=== PATIENT | female | born 1965 | race Caucasian/White ===

== ENCOUNTER → 2016-09-25 | Outpatient (CLI) | payer OTHER ==
[~2016-09-25] MED LIST: ATORVASTATIN CA40 MG PO; CLEOCIN300 MG PO; CONZIP300 MG PO; FLEXERIL10 MG PO; HUMALOG100 UNIT/1 SQ; HYDROCHLOROTHIA25 MG PO; HYDROCODON-ACE1 EAC7 PO; LANTUS 10100 UNITS/ SC; LANTUS 3 M100 UNITS1 SC; LEXAPRO10 MG PO; LISINOPRIL10 MG PO; LO-DOSE ASPIRIN81 M2 PO; LOSARTAN POTAS100 MG PO; LYRICA150 MG PO; LYRICA200 MG PO; LYRICA300 MG PO; OMEGA 3 500 SO1 EACH PO; PLAVIX75 MG PO; PROAIR HFA8.5 GM IH; RANITIDINE HCL75 MG PO; ULTRAM50 MG PO
== END | disposition home or self-care (01) ==
LOC: PICC 14:00
DX: M86.9 Osteomyelitis, unspecified (principal); Z88.0 Allergy status to penicillin; Z88.1 Allergy status to other antibiotic agents
CPT/HCPCS: 76937; C1894

== ENCOUNTER → 2016-09-25 | Outpatient (CLI) | payer OTHER ==
[~2016-09-25] VITALS: Ht 157.5 cm; Wt 81.8 kg
[2016-09-25 12:08] VITALS: BP 151/67
[2016-09-25 12:24] LABS: HEMATOCRIT 38.5 % (36.0-46.0); MCH 29.2 PG (29.0-34.0); MCHC 32.5 G/DL (30.0-36.0); MEAN PLAT.VOLUME 10.7 uM^3 (9.5-12.4); PLATELET COUNT 267 K/uL (156-360); RBC DIS.WIDTH-CV 14.2 % (11.8-14.6); RBC DIS.WIDTH-SD 46.4 % (39-53); RED BLOOD COUNT 4.28 M/uL (3.80-5.20); WHITE BLOOD COUNT 10.9 K/uL (4.1-10.2)
[2016-09-25 12:45] LABS: ANION GAP 8 MEQ/L (2-14); CHLORIDE 106 MEQ/L (99-109); GFR ESTIMATE (CALCULATED) > 59 mL/min/; GLUCOSE 54 mg/dL (70-99); POTASSIUM 3.9 MEQ/L (3.7-5.4); SAMPLE HEMOLYSIS CHECK 0; SAMPLE ICTERIC CHECK 0; SAMPLE LIPEMIA CHECK 0; SODIUM 141 MEQ/L (136-147); UREA NITROGEN (BUN) 16 mg/dL (9-23)
[2016-09-25 13:07] LABS: ERTH.SED.RATE 68 MM/HR (0-30)
== END | disposition home or self-care (01) ==
LOC: IVINF 11:30
PROVIDERS: Internal Medicine Infectious Disease
DX: M86.9 Osteomyelitis, unspecified (principal); Z88.1 Allergy status to other antibiotic agents
CPT/HCPCS: 80048; 85027; 85651; 86140; 96365; J0690

== ENCOUNTER 2016-12-10 21:06 | Emergency (ER) | payer OTHER ==
[~2016-12-10] VITALS: Ht 157.5 cm; Wt 87.3 kg
[2016-12-10 23:14] LABS: BASOPHIL COUNT 0.1 K/uL (0-0.1); EOSINOPHIL (%) 2.7 % (0-5); EOSINOPHIL COUNT 0.4 K/uL (0-0.3); HEMATOCRIT 31.6 % (36.0-46.0); IMMATURE GRANULOCYTE (%) 0.4 % (0.0-0.7); IMMATURE GRANULOCYTE COUNT 0.1 K/uL; INSTRUMENT ABS NEUTROPHIL CT 9.3 K/uL; LYMPHOCYTE COUNT 2.8 K/uL (1.0-2.8); MCH 27.7 PG (29.0-34.0); MCHC 31.3 G/DL (30.0-36.0); MCV 88.5 FL (83-99); MEAN PLAT.VOLUME 10.6 uM^3 (9.5-12.4); MONOCYTE (%) 7.5 % (3-12); NEUTROPHIL (%) 68.5 % (45-76); NEUTROPHIL COUNT 9.3 K/uL (1.8-6.4); PLATELET COUNT 312 K/uL (156-360); RBC DIS.WIDTH-CV 13.5 % (11.8-14.6); RBC DIS.WIDTH-SD 43.7 % (39-53); RED BLOOD COUNT 3.57 M/uL (3.80-5.20); WHITE BLOOD COUNT 13.5 K/uL (4.1-10.2)
[2016-12-10 23:25] LABS: CHLORIDE 102 mEq/L (99-109); POTASSIUM 4.3 mEq/L (3.7-5.4); SODIUM 140 mEq/L (136-147)
[2016-12-10 23:27] LABS: GLUCOSE 189 mg/dL (70-99)
[2016-12-10 23:28] LABS: ANION GAP 11 MEQ/L (2-14)
[2016-12-10 23:31] LABS: GFR ESTIMATE (CALCULATED) 36 mL/min/
[2016-12-10 23:32] LABS: UREA NITROGEN (BUN) 19 mg/dL (9-23)
[2016-12-10] MEDS ORDERED: ZYVOX600 MG PO (23:47)
[2016-12-11 00:11] LABS: ERTH.SED.RATE 75 MM/HR (0-30)
[2016-12-11 00:31] VITALS: BP 119/76
[2016-12-11 04:39] LABS: C-REACTIVE PROTEIN 197.3 MG/L (0-10); SAMPLE HEMOLYSIS CHECK 0; SAMPLE ICTERIC CHECK 0; SAMPLE LIPEMIA CHECK 0
== END 2016-12-11 00:38 ==
LOC: EME 21:06
PROVIDERS: Emergency Medicine
DX: L03.115 Cellulitis of right lower limb (principal); E11.65 Type 2 diabetes mellitus with hyperglycemia; Z79.4 Long term (current) use of insulin; Z79.82 Long term (current) use of aspirin; E78.5 Hyperlipidemia, unspecified; Z88.1 Allergy status to other antibiotic agents; Z88.0 Allergy status to penicillin; I10 Essential (primary) hypertension; Z86.73 Personal history of transient ischemic attack (TIA), and cerebral infarction without residual deficits; Z72.0 Tobacco use; Z89.512 Acquired absence of left leg below knee
CPT/HCPCS: 73610; 73630; 80048; 83605; 85025 91; 85651; 86140; 87040; 99281; 99285

== ENCOUNTER 2017-01-05 11:28 | Emergency (ER) | payer OTHER ==
[~2017-01-05] VITALS: Ht 157.5 cm; Wt 85.5 kg
[~2017-01-05 11:28] MED LIST changes: +ZYVOX600 MG PO
[2017-01-05 12:35] LABS: ADD MIUA? YES; BILIRUBIN NEGATIVE; BLOOD NEGATIVE; COLOR YELLOW ((YELLOW)); GLUCOSE (STRIP) NEGATIVE; KETONES NEGATIVE; LEUKOCYTES MODERATE; NITRITE NEGATIVE; PROTEIN (STRIP) 30; SPECIFIC GRAVITY 1.011 (1.000-1.030); UROBILINOGEN 0.2 MG/DL (0.2-1.0)
[2017-01-05 12:52] LABS: EPITHELIAL CELLS 1+ /HPF; MUCUS NONE SEEN /LPF; RED BLOOD CELLS NONE SEEN /HPF (0-5)
[2017-01-05 12:53] LABS: BACTERIA 3+ /HPF
[2017-01-05 13:13] LABS: HEMATOCRIT 25.8 % (36.0-46.0); MCH 25.6 PG (29.0-34.0); MCV 82.7 FL (83-99); PLATELET COUNT 459 K/uL (156-360); RBC DIS.WIDTH-CV 15.8 % (11.8-14.6); RBC DIS.WIDTH-SD 47.2 % (39-53); RED BLOOD COUNT 3.12 M/uL (3.80-5.20); WHITE BLOOD COUNT 12.9 K/uL (4.1-10.2)
[2017-01-05 13:17] LABS: CHLORIDE 103 mEq/L (99-109); POTASSIUM 4.1 mEq/L (3.7-5.4); SODIUM 138 mEq/L (136-147)
[2017-01-05 13:19] LABS: GLUCOSE 83 mg/dL (70-99)
[2017-01-05 13:20] LABS: ANION GAP 12 MEQ/L (2-14)
[2017-01-05 13:23] LABS: GFR ESTIMATE (CALCULATED) 50 mL/min/
[2017-01-05 13:24] LABS: UREA NITROGEN (BUN) 23 mg/dL (9-23)
[2017-01-05] MEDS ORDERED: LEVAQUIN750 MG PO (13:37)
[2017-01-05 14:07] VITALS: BP 138/74
[2017-01-05] MEDS ORDERED: COLESTID1 GM PO (17:03)
[2017-01-05] MEDS ORDERED: CYMBALTA60 MG PO (17:03)
[2017-01-05] MEDS ORDERED: EUCERIN CREME57 GM TP (17:05)
[2017-01-05] MEDS ORDERED: GLUCAGEN1 MG IM (17:06)
[2017-01-05] MEDS ORDERED: GLUCOSE GEL15 GM PO (17:06)
[2017-01-05] MEDS ORDERED: FERROUS SULFAT325 MG PO (17:06)
[2017-01-05] MEDS ORDERED: KETOCONAZOLE60 GM TP (17:07)
[2017-01-05] MEDS ORDERED: LORTAB 5-325 M1 EACH PO (17:07)
[2017-01-05] MEDS ORDERED: PROCARDIA XL90 MG PO (17:09)
[2017-01-05] MEDS ORDERED: LANTUS 10100 UNITS/ SC (17:09)
[2017-01-05] MEDS ORDERED: RANITIDINE HCL150 M1 PO (17:10)
[2017-01-05] MEDS ORDERED: VITAMIN D5000 UNI1 PO (17:10)
[2017-01-05] MEDS ORDERED: SILVADENE20 GM TP (17:10)
== END 2017-01-05 14:21 ==
LOC: EME 11:28
PROVIDERS: Emergency Medicine
DX: R33.9 Retention of urine, unspecified (principal); N39.0 Urinary tract infection, site not specified; Z86.73 Personal history of transient ischemic attack (TIA), and cerebral infarction without residual deficits; Z89.612 Acquired absence of left leg above knee; E11.9 Type 2 diabetes mellitus without complications; E78.5 Hyperlipidemia, unspecified; I10 Essential (primary) hypertension; Z79.4 Long term (current) use of insulin; Z79.02 Long term (current) use of antithrombotics/antiplatelets; Z88.0 Allergy status to penicillin; F17.200 Nicotine dependence, unspecified, uncomplicated
CPT/HCPCS: 80048; 81003; 85027; 87086; 99281; 99285

== ENCOUNTER 2017-01-13 11:33 | Emergency (ER) | payer OTHER ==
[~2017-01-13] VITALS: Ht 157.5 cm; Wt 81.9 kg
[~2017-01-13 11:33] MED LIST changes: +COLESTID1 GM PO; +CYMBALTA60 MG PO; +EUCERIN CREME57 GM TP; +FERROUS SULFAT325 MG PO; +GLUCAGEN1 MG IM; +GLUCOSE GEL15 GM PO; +KETOCONAZOLE60 GM TP; +LEVAQUIN750 MG PO; +LORTAB 5-325 M1 EACH PO; +PROCARDIA XL90 MG PO; +RANITIDINE HCL150 M1 PO; +SILVADENE20 GM TP; +VITAMIN D5000 UNI1 PO
[2017-01-13 13:08] LABS: HEMATOCRIT 38.6 % (36.0-46.0); MCH 25.9 PG (29.0-34.0); MCHC 31.3 G/DL (30.0-36.0); MCV 82.5 FL (83-99); RBC DIS.WIDTH-CV 14.6 % (11.8-14.6); RBC DIS.WIDTH-SD 43.9 % (39-53); RED BLOOD COUNT 4.68 M/uL (3.80-5.20); WHITE BLOOD COUNT 10.5 K/uL (4.1-10.2)
[2017-01-13 13:16] LABS: CHLORIDE 102 mEq/L (99-109); POTASSIUM 4.4 mEq/L (3.7-5.4); SODIUM 140 mEq/L (136-147)
[2017-01-13 13:18] LABS: EOSINOPHIL (%) 1.1 % (0-5); EOSINOPHIL COUNT 0.1 K/uL (0-0.3); IMMATURE GRANULOCYTE (%) 0.5 % (0.0-0.7); IMMATURE GRANULOCYTE COUNT 0.1 K/uL; INSTRUMENT ABS NEUTROPHIL CT 7.5 K/uL; LYMPHOCYTE COUNT 2.2 K/uL (1.0-2.8); MONOCYTE (%) 6.2 % (3-12); MONOCYTE COUNT 0.7 K/uL (0-0.8); NEUTROPHIL (%) 70.6 % (45-76); NEUTROPHIL COUNT 7.5 K/uL (1.8-6.4)
[2017-01-13 13:20] LABS: ANION GAP 11 MEQ/L (2-14); TOTAL BILIRUBIN 0.4 mg/dL (0.0-1.0)
[2017-01-13 13:22] LABS: ALKALINE PHOSPHATASE 92 IU/L (3-129); GFR ESTIMATE (CALCULATED) 50 mL/min/; GLUCOSE 247 mg/dL (70-99)
[2017-01-13 13:23] LABS: UREA NITROGEN (BUN) 23 mg/dL (9-23)
[2017-01-13 13:37] LABS: MEAN PLAT.VOLUME 10.2 uM^3 (9.5-12.4); PLAT.SUFFICIENCY ADEQUATE; PLATELET COUNT 305 K/uL (156-360)
[2017-01-13] MEDS ORDERED: XARELTO15 MG PO (15:56)
[2017-01-13 18:20] VITALS: BP 184/86
== END 2017-01-13 18:32 ==
LOC: EME 11:33
PROVIDERS: Emergency Medicine
DX: I82.622 Acute embolism and thrombosis of deep veins of left upper extremity (principal); J02.9 Acute pharyngitis, unspecified; E11.65 Type 2 diabetes mellitus with hyperglycemia; E78.5 Hyperlipidemia, unspecified; I10 Essential (primary) hypertension; Z86.73 Personal history of transient ischemic attack (TIA), and cerebral infarction without residual deficits; Z79.4 Long term (current) use of insulin; Z89.512 Acquired absence of left leg below knee; Z88.0 Allergy status to penicillin; Z87.891 Personal history of nicotine dependence
CPT/HCPCS: 80053; 81003; 85025; 93971; 99281; 99285; J7030

== ENCOUNTER 2017-01-23 09:09 | Inpatient (IN) | payer OTHER ==
[~2017-01-23] VITALS: Ht 157.5 cm; Wt 83.0 kg
[2017-01-23] VITALS (27 sets, daily range): BP systolic 0–157; BP diastolic 0–85
[~2017-01-23 09:09] MED LIST changes: +XARELTO15 MG PO
[2017-01-23 09:49] LABS: EOSINOPHIL (%) 0.3 % (0-5); HEMATOCRIT 22.4 % (36.0-46.0); IMMATURE GRANULOCYTE (%) 0.6 % (0.0-0.7); IMMATURE GRANULOCYTE COUNT 0.1 K/uL; INSTRUMENT ABS NEUTROPHIL CT 6.7 K/uL; LYMPHOCYTE COUNT 2.7 K/uL (1.0-2.8); MCH 25.7 PG (29.0-34.0); MCHC 29.9 G/DL (30.0-36.0); MCV 85.8 FL (83-99); MEAN PLAT.VOLUME 11.1 uM^3 (9.5-12.4); MONOCYTE (%) 3.6 % (3-12); MONOCYTE COUNT 0.4 K/uL (0-0.8); NEUTROPHIL (%) 68.3 % (45-76); NEUTROPHIL COUNT 6.7 K/uL (1.8-6.4); PLATELET COUNT 273 K/uL (156-360); RBC DIS.WIDTH-CV 15.9 % (11.8-14.6); RBC DIS.WIDTH-SD 49.8 % (39-53)
[2017-01-23 09:50] LABS: RED BLOOD COUNT 2.61 M/uL (3.80-5.20); WHITE BLOOD COUNT 9.9 K/uL (4.1-10.2)
[2017-01-23 09:57] LABS: PROTHROMBIN TIME 30.7 (9.2-11.2); PTT 57.3 (25-32)
[2017-01-23 09:58] LABS: INTER. NORMALIZED RATIO 2.9
[2017-01-23 10:00] LABS: CHLORIDE 109 mEq/L (99-109); POTASSIUM 5.4 mEq/L (3.7-5.4); SODIUM 135 mEq/L (136-147)
[2017-01-23 10:03] LABS: ANION GAP 12 MEQ/L (2-14)
[2017-01-23 10:04] LABS: TOTAL BILIRUBIN 0.2 mg/dL (0.0-1.0)
[2017-01-23 10:05] LABS: ALKALINE PHOSPHATASE 58 IU/L (3-129)
[2017-01-23 10:06] LABS: GFR ESTIMATE (CALCULATED) 39 mL/min/
[2017-01-23 10:07] LABS: UREA NITROGEN (BUN) 69 mg/dL (9-23)
[2017-01-23 10:10] LABS: TROP-I INTERPRETATION NEGATIVE; TROPONIN-I 0.01 ng/mL (0.0-0.30)
[2017-01-23 10:15] LABS: GLUCOSE 171 mg/dL (70-99)
[2017-01-23 10:29] LABS: BASE EXCESS -5.7 mEq/L (-3 to +3); BICARBONATE 19.4 mEq/L (22-26); COMMENTS - BLOOD GASES C+; DEVICE NRB MASK; O2 FLOW 15 L/MIN; PCO2 36 mm Hg (35-45); PO2 121 mm Hg (80-100); SITE RB; TOTAL RESP RATE 12 resp/min; pH 7.34 (7.35-7.45)
[2017-01-23 10:32] LABS: CARBOXY HGB 2.3 % (0-5)
[2017-01-23] MEDS ORDERED: ASPIR-LOW81 MG PO (12:45)
[2017-01-23] MEDS ORDERED: ARTIFICIAL TEAR1510 BOTH EYES (12:45)
[2017-01-23] MEDS ORDERED: ATORVASTATIN CA40 MG PO (12:46)
[2017-01-23] MEDS ORDERED: CLOPIDOGREL75 MG PO (12:46)
[2017-01-23] MEDS ORDERED: WARFARIN SODIUM6 MG PO (12:47)
[2017-01-23] MEDS ORDERED: WARFARIN SODIUM5 MG PO (12:47)
[2017-01-23] MEDS ORDERED: TAMSULOSIN HCL0.4 MG PO (12:48)
[2017-01-23] MEDS ORDERED: LISINOPRIL20 MG PO (12:49)
[2017-01-23] MEDS ORDERED: LORATADINE10 M2 PO (12:49)
[2017-01-23] MEDS ORDERED: NICOTINE PATCH1 EAC1 TD (12:50)
[2017-01-23] MEDS ORDERED: NORTRIPTYLINE H25 MG PO (12:50)
[2017-01-23] MEDS ORDERED: ERGOCALCIF50000 UNIT PO (12:51)
[2017-01-23] MEDS ORDERED: LOVAZA1 GM PO (12:51)
[2017-01-23] MEDS ORDERED: WARFARIN SODIU2.5 MG PO (12:52)
[2017-01-23] MEDS ORDERED: ZINC SULFATE220 M1 PO (12:53)
[2017-01-23] MEDS ORDERED: VITAMIN C500 M1 PO (12:53)
[2017-01-23] MEDS ORDERED: CILOSTAZOL100 MG PO (12:54)
[2017-01-23] MEDS ORDERED: CRANBERRY 4001 EAC1 PO (12:54)
[2017-01-23] MEDS ORDERED: ENOXAPARIN40 MG/0.4 SC (12:55)
[2017-01-23] MEDS ORDERED: MUCINEX DM ER1 EACH PO (12:56)
[2017-01-23] MEDS ORDERED: PROBIOTIC1 EAC1 PO (12:57)
[2017-01-23] MEDS ORDERED: OXYCONTIN10 MG PO (12:57)
[2017-01-23] MEDS ORDERED: BETHANECHOL CHL50 MG PO (12:58)
[2017-01-23] MEDS ORDERED: LYRICA200 MG PO (12:58)
[2017-01-23] MEDS ORDERED: GABAPENTIN300 MG PO (12:59)
[2017-01-23] MEDS ORDERED: NOVOLOG PE100 UNITS/ SC (13:01)
[2017-01-23] MEDS ORDERED: SSD25GM TP (13:02)
[2017-01-23] MEDS ORDERED: LOMOTIL TABLET1 EACH PO (13:02)
[2017-01-23] MEDS ORDERED: 8 HOUR PAIN RE650 M1 PO (13:03)
[2017-01-23 13:30] LABS: POINT-OF-CARE METER ID UU14100415
[2017-01-23] MEDS ORDERED: LANTUS 3 M100 UNITS1 SC (14:04)
[2017-01-23] MEDS ORDERED: ARTIFICIAL TEAR15 M1 BOTH EYES (14:06)
[2017-01-23 21:49] LABS: METH RESISTANT S AUREUS PCR POSITIVE (NEGATIVE)
[2017-01-23 21:53] LABS: HEMATOCRIT 31.9 % (36.0-46.0); MCH 26.6 PG (29.0-34.0); MCHC 32.9 G/DL (30.0-36.0); PLATELET COUNT 272 K/uL (156-360); RBC DIS.WIDTH-CV 15.3 % (11.8-14.6); RBC DIS.WIDTH-SD 44.5 % (39-53); WHITE BLOOD COUNT 10.4 K/uL (4.1-10.2)
[2017-01-23 21:54] LABS: MCV 80.8 FL (83-99); RED BLOOD COUNT 3.95 M/uL (3.80-5.20)
[2017-01-23 21:57] LABS: PROBE CHECK PASS
[2017-01-23 22:06] LABS: PTT 37.8 (25-32)
[2017-01-23 22:14] LABS: TROP-I INTERPRETATION NEGATIVE; TROPONIN-I 0.05 ng/mL (0.0-0.30)
[2017-01-23 22:43] LABS: INTER. NORMALIZED RATIO 1.2; PROTHROMBIN TIME 12.4 (9.2-11.2)
[2017-01-24] VITALS (20 sets, daily range): BP systolic 126–184; BP diastolic 64–106
[2017-01-24 07:23] LABS: Estimated Average Glucose 146 mg/dL (70-123); HEMOGLOBIN A1c (GLYCOHEMOGLOB) 6.7 % HGB (Below 5.7)
[2017-01-24 09:20] LABS: HEMATOCRIT 34.6 % (36.0-46.0); MCH 26.5 PG (29.0-34.0); MCHC 32.7 G/DL (30.0-36.0); MEAN PLAT.VOLUME 11.4 uM^3 (9.5-12.4); PLATELET COUNT 282 K/uL (156-360); RBC DIS.WIDTH-CV 15.6 % (11.8-14.6); RBC DIS.WIDTH-SD 45.2 % (39-53); RED BLOOD COUNT 4.27 M/uL (3.80-5.20); WHITE BLOOD COUNT 10.5 K/uL (4.1-10.2)
[2017-01-24 09:27] LABS: CHLORIDE 115 mEq/L (99-109); POTASSIUM 4.9 mEq/L (3.7-5.4)
[2017-01-24 09:29] LABS: INTER. NORMALIZED RATIO 1.2; PROTHROMBIN TIME 11.8 (9.2-11.2); PTT 35.8 (25-32)
[2017-01-24 09:30] LABS: ANION GAP 11 MEQ/L (2-14)
[2017-01-24 09:33] LABS: GFR ESTIMATE (CALCULATED) 46 mL/min/
[2017-01-24 09:34] LABS: UREA NITROGEN (BUN) 65 mg/dL (9-23)
[2017-01-24 09:35] LABS: GLUCOSE 316 mg/dL (70-99); SODIUM 145 mEq/L (136-147)
[2017-01-24 10:04] LABS: POINT-OF-CARE METER ID UU13113731
[2017-01-24 11:14] LABS: POINT-OF-CARE METER ID UU13113694
[2017-01-24 13:19] LABS: HEMATOCRIT 33.2 % (36.0-46.0); MCH 26.7 PG (29.0-34.0); MCHC 32.8 G/DL (30.0-36.0); MCV 81.2 FL (83-99); MEAN PLAT.VOLUME 11.2 uM^3 (9.5-12.4); PLATELET COUNT 276 K/uL (156-360); RBC DIS.WIDTH-CV 15.8 % (11.8-14.6); RBC DIS.WIDTH-SD 46.1 % (39-53); RED BLOOD COUNT 4.09 M/uL (3.80-5.20); WHITE BLOOD COUNT 12.7 K/uL (4.1-10.2)
[2017-01-24 14:28] LABS: ADD MIUA? YES; BILIRUBIN NEGATIVE; BLOOD MODERATE; COLOR STRAW ((YELLOW)); GLUCOSE (STRIP) >=500; KETONES 5; LEUKOCYTES NEGATIVE; NITRITE NEGATIVE; PROTEIN (STRIP) 100; SPECIFIC GRAVITY 1.008 (1.000-1.030); UROBILINOGEN 0.2 MG/DL (0.2-1.0)
[2017-01-24 14:36] LABS: BASE EXCESS 1.3 mEq/L (-3 to +3); CARBOXY HGB 2.4 % (0-5); METHEMOGLOBIN 1.3 % (0-1.5); PCO2 34 mm Hg (35-45)
[2017-01-24 14:37] LABS: BICARBONATE 24.7 mEq/L (22-26); COMMENTS - BLOOD GASES A+C+; DEVICE NC; O2 FLOW 2 L/MIN; PO2 66 mm Hg (80-100); SITE LR; TOTAL RESP RATE 14 resp/min; pH 7.47 (7.35-7.45)
[2017-01-24 14:45] LABS: EOSINOPHIL (%) 0.2 % (0-5); IMMATURE GRANULOCYTE (%) 1.1 % (0.0-0.7); IMMATURE GRANULOCYTE COUNT 0.1 K/uL; INSTRUMENT ABS NEUTROPHIL CT 10.4 K/uL; LYMPHOCYTE COUNT 1.4 K/uL (1.0-2.8); MONOCYTE (%) 5.3 % (3-12); MONOCYTE COUNT 0.7 K/uL (0-0.8); NEUTROPHIL (%) 82.2 % (45-76); NEUTROPHIL COUNT 10.4 K/uL (1.8-6.4)
[2017-01-24 14:50] LABS: BACTERIA RARE /HPF; EPITHELIAL CELLS NONE SEEN /HPF; HYALINE CASTS 0-5 /LPF; MUCUS TRACE /LPF; RED BLOOD CELLS 15-20 /HPF (0-5); UCUL ADDED? NO; WHITE BLOOD CELLS 0-5 /HPF (0-5)
[2017-01-24 15:07] LABS: MAGNESIUM 2.1 mg/dL (1.3-2.7)
[2017-01-24 19:18] LABS: HEMATOCRIT 32.9 % (36.0-46.0); MCH 26.8 PG (29.0-34.0); MCHC 32.8 G/DL (30.0-36.0); MCV 81.6 FL (83-99); MEAN PLAT.VOLUME 10.6 uM^3 (9.5-12.4); PLATELET COUNT 246 K/uL (156-360); RBC DIS.WIDTH-CV 15.8 % (11.8-14.6); RBC DIS.WIDTH-SD 46.4 % (39-53); RED BLOOD COUNT 4.03 M/uL (3.80-5.20); WHITE BLOOD COUNT 12.9 K/uL (4.1-10.2)
[2017-01-24 20:05] LABS: EOSINOPHIL (%) 0.2 % (0-5); IMMATURE GRANULOCYTE (%) 0.9 % (0.0-0.7); IMMATURE GRANULOCYTE COUNT 0.1 K/uL; INSTRUMENT ABS NEUTROPHIL CT 10.5 K/uL; LYMPHOCYTE COUNT 1.4 K/uL (1.0-2.8); MONOCYTE COUNT 0.8 K/uL (0-0.8); NEUTROPHIL (%) 81.7 % (45-76); NEUTROPHIL COUNT 10.5 K/uL (1.8-6.4)
[2017-01-25] VITALS (23 sets, daily range): BP systolic 130–204; BP diastolic 60–108
[2017-01-25 01:05] LABS: HEMATOCRIT 35.6 % (36.0-46.0); MCH 26.7 PG (29.0-34.0); MCHC 32.6 G/DL (30.0-36.0); MCV 81.8 FL (83-99); MEAN PLAT.VOLUME 10.4 uM^3 (9.5-12.4); PLATELET COUNT 258 K/uL (156-360); RBC DIS.WIDTH-SD 47.8 % (39-53); RED BLOOD COUNT 4.35 M/uL (3.80-5.20); WHITE BLOOD COUNT 14.8 K/uL (4.1-10.2)
[2017-01-25 02:12] LABS: EOSINOPHIL (%) 0.3 % (0-5); HEMATOLOGY COMMENT 1 SMEAR COMPATIBLE; IMMATURE GRANULOCYTE (%) 1.1 % (0.0-0.7); IMMATURE GRANULOCYTE COUNT 0.2 K/uL; INSTRUMENT ABS NEUTROPHIL CT 11.6 K/uL; LYMPHOCYTE COUNT 2.2 K/uL (1.0-2.8); MONOCYTE (%) 5.6 % (3-12); MONOCYTE COUNT 0.8 K/uL (0-0.8); NEUTROPHIL COUNT 11.6 K/uL (1.8-6.4)
[2017-01-25 07:44] LABS: HEMATOCRIT 35.3 % (36.0-46.0); MCH 26.7 PG (29.0-34.0); MCHC 31.7 G/DL (30.0-36.0); MEAN PLAT.VOLUME 11.1 uM^3 (9.5-12.4); PLATELET COUNT 266 K/uL (156-360); RBC DIS.WIDTH-SD 48.1 % (39-53); WHITE BLOOD COUNT 14.4 K/uL (4.1-10.2)
[2017-01-25 08:11] LABS: ANION GAP 15 MEQ/L (2-14); CHLORIDE 112 MEQ/L (99-109); GFR ESTIMATE (CALCULATED) > 59 mL/min/; GLUCOSE 304 mg/dL (70-99); SAMPLE HEMOLYSIS CHECK 0; SAMPLE ICTERIC CHECK 0; SAMPLE LIPEMIA CHECK 0; SODIUM 149 MEQ/L (136-147); UREA NITROGEN (BUN) 36 mg/dL (9-23)
[2017-01-25 08:16] LABS: ANISOCYTOSIS 1+; BAND NEUTROPHILS 18.4 % (0-8.0); BASOPHILS 0.9 %; EOSINOPHIL ABS CT 0; INSTRUMENT ABS NEUTROPHIL CT 12.4 K/uL; LYMPHOCYTES 8.8 % (15.0-45.0); MACROCYTES 1+; PLAT.SUFFICIENCY ADEQUATE; POLYCHROMASIA 1+; SEG.NEUTROPHILS 71.9 % (46.0-76.0)
[2017-01-25 09:01] LABS: INTER. NORMALIZED RATIO 1.2; PROTHROMBIN TIME 12.3 (9.2-11.2); PTT 36.5 (25-32)
[2017-01-25 09:49] LABS: MAGNESIUM 1.8 mg/dl (1.3-2.7)
[2017-01-25 12:38] LABS: HEMATOCRIT 33.8 % (36.0-46.0); MCH 26.9 PG (29.0-34.0); MCHC 32.5 G/DL (30.0-36.0); MCV 82.6 FL (83-99); MEAN PLAT.VOLUME 10.8 uM^3 (9.5-12.4); PLATELET COUNT 248 K/uL (156-360); RBC DIS.WIDTH-SD 48.3 % (39-53); RED BLOOD COUNT 4.09 M/uL (3.80-5.20)
[2017-01-25 13:34] LABS: ABS NEUTROPHIL COUNT 13.2; EOSINOPHIL ABS CT 0; INSTRUMENT ABS NEUTROPHIL CT 12.6 K/uL; LYMPHOCYTES 7.9 % (15.0-45.0); METAMYELOCYTES 1.8 %; PLAT.SUFFICIENCY ADEQUATE; POLYCHROMASIA 1+; SEG.NEUTROPHILS 87.7 % (46.0-76.0); SMUDGE CELLS 0.9
[2017-01-25 19:31] LABS: HEMATOCRIT 33.3 % (36.0-46.0); MCH 27.3 PG (29.0-34.0); MCHC 32.7 G/DL (30.0-36.0); MCV 83.5 FL (83-99); MEAN PLAT.VOLUME 11.2 uM^3 (9.5-12.4); PLATELET COUNT 260 K/uL (156-360); RBC DIS.WIDTH-CV 16.2 % (11.8-14.6); RBC DIS.WIDTH-SD 49.4 % (39-53); RED BLOOD COUNT 3.99 M/uL (3.80-5.20); WHITE BLOOD COUNT 16.9 K/uL (4.1-10.2)
[2017-01-25 20:09] LABS: EOSINOPHIL (%) 0.1 % (0-5); IMMATURE GRANULOCYTE (%) 1.1 % (0.0-0.7); IMMATURE GRANULOCYTE COUNT 0.2 K/uL; INSTRUMENT ABS NEUTROPHIL CT 14.2 K/uL; LYMPHOCYTE COUNT 1.7 K/uL (1.0-2.8); MONOCYTE (%) 4.9 % (3-12); MONOCYTE COUNT 0.8 K/uL (0-0.8); NEUTROPHIL (%) 83.9 % (45-76); NEUTROPHIL COUNT 14.2 K/uL (1.8-6.4)
[2017-01-25 23:51] LABS: POINT-OF-CARE METER ID UU13113803
[2017-01-26] VITALS (23 sets, daily range): BP systolic 132–196; BP diastolic 60–101
[2017-01-26 07:22] LABS: POINT-OF-CARE METER ID UU14174217
[2017-01-26 09:10] LABS: HEMATOCRIT 30.8 % (36.0-46.0); MCH 26.8 PG (29.0-34.0); MCHC 31.8 G/DL (30.0-36.0); MCV 84.4 FL (83-99); MEAN PLAT.VOLUME 11.6 uM^3 (9.5-12.4); PLATELET COUNT 243 K/uL (156-360); RBC DIS.WIDTH-CV 16.1 % (11.8-14.6); RBC DIS.WIDTH-SD 49.3 % (39-53); RED BLOOD COUNT 3.65 M/uL (3.80-5.20); WHITE BLOOD COUNT 14.8 K/uL (4.1-10.2)
[2017-01-26 09:17] LABS: INTER. NORMALIZED RATIO 1.4; PROTHROMBIN TIME 14.2 (9.2-11.2); PTT 38.5 (25-32)
[2017-01-26 09:31] LABS: ANION GAP 13 MEQ/L (2-14); CHLORIDE 111 MEQ/L (99-109); GFR ESTIMATE (CALCULATED) > 59 mL/min/; GLUCOSE 240 mg/dL (70-99); POTASSIUM 3.5 MEQ/L (3.7-5.4); SAMPLE HEMOLYSIS CHECK 0; SAMPLE ICTERIC CHECK 0; SAMPLE LIPEMIA CHECK 0; SODIUM 149 MEQ/L (136-147); UREA NITROGEN (BUN) 29 mg/dL (9-23)
[2017-01-26 11:55] LABS: POINT-OF-CARE METER ID UU13113731
[2017-01-26 15:08] LABS: C DIFF TOXIN POSITIVE (NEGATIVE)
[2017-01-26 15:24] LABS: PROBE CHECK PASS
[2017-01-26 17:31] LABS: POINT-OF-CARE METER ID UU13113731
[2017-01-26 21:59] LABS: BASE EXCESS 4.1 mEq/L (-3 to +3); BICARBONATE 29.2 mEq/L (22-26); CARBOXY HGB 2.1 % (0-5); METHEMOGLOBIN 2.1 % (0-1.5); pH 7.42 (7.35-7.45)
[2017-01-26 22:00] LABS: COMMENTS - BLOOD GASES A+C+; DEVICE COOL AEROSOL; O2 FLOW 96 L/MIN; PCO2 45 mm Hg (35-45); PO2 41 mm Hg (80-100); SITE LR; TOTAL RESP RATE 21 resp/min
[2017-01-27] VITALS: BP 180/99
[2017-01-27] LABS: TROP-I INTERPRETATION POSITIVE; TROPONIN-I 1.19 ng/mL (0.0-0.30)
[2017-01-27 00:44] LABS: POINT-OF-CARE METER ID UU13113731; POINT-OF-CARE USER ID AGYTJR
[2017-01-27 01:00] VITALS: BP 134/69
[2017-01-27 02:00] VITALS: BP 182/121
[2017-01-27 03:00] VITALS: BP 144/101
[2017-01-27 04:00] VITALS: BP 134/67
[2017-01-27 07:27] LABS: HEMATOCRIT 31.6 % (36.0-46.0); MCH 27.3 PG (29.0-34.0); MCHC 31.3 G/DL (30.0-36.0); MCV 87.3 FL (83-99); MEAN PLAT.VOLUME 11.6 uM^3 (9.5-12.4); PLATELET COUNT 223 K/uL (156-360); RBC DIS.WIDTH-CV 16.3 % (11.8-14.6); RBC DIS.WIDTH-SD 52.1 % (39-53); RED BLOOD COUNT 3.62 M/uL (3.80-5.20); WHITE BLOOD COUNT 14.8 K/uL (4.1-10.2)
[2017-01-27 07:36] LABS: INTER. NORMALIZED RATIO 1.5; PROTHROMBIN TIME 15.3 (9.2-11.2); PTT 34.1 (25-32)
[2017-01-27 07:58] LABS: ANION GAP 10 MEQ/L (2-14); CHLORIDE 110 MEQ/L (99-109); GFR ESTIMATE (CALCULATED) 36 mL/min/; GLUCOSE 216 mg/dL (70-99); SAMPLE HEMOLYSIS CHECK 0; SAMPLE ICTERIC CHECK 0; SAMPLE LIPEMIA CHECK 0; SODIUM 150 MEQ/L (136-147); UREA NITROGEN (BUN) 34 mg/dL (9-23)
[2017-01-28 13:55] LABS: POC NON-PRINT COM 1 ND
== END 2017-01-28 07:38 | DRG 377 ==
LOC: EME 09:09 → 4WEST 13:56 → EDOF 13:56 → 4WEST 16:05 → EDOF 16:08 → 4WEST 16:16 → EDOF 16:25 → 4WEST 17:54 → 5EAST 01-27 04:49
PROVIDERS: Emergency Medicine; Internal Medicine; Internal Medicine Gastroenterology; Internal Medicine Nephrology; Internal Medicine Pulmonary Disease; Psychiatry & Neurology Neurology
DX: K25.0 Acute gastric ulcer with hemorrhage (principal); J96.21 Acute and chronic respiratory failure with hypoxia; D68.32 Hemorrhagic disorder due to extrinsic circulating anticoagulants; T39.395A Adverse effect of other nonsteroidal anti-inflammatory drugs [NSAID], initial encounter; T45.515A Adverse effect of anticoagulants, initial encounter; T45.525A Adverse effect of antithrombotic drugs, initial encounter; I82.622 Acute embolism and thrombosis of deep veins of left upper extremity; D62 Acute posthemorrhagic anemia; J18.9 Pneumonia, unspecified organism; E11.621 Type 2 diabetes mellitus with foot ulcer; L89.514 Pressure ulcer of right ankle, stage 4; L89.613 Pressure ulcer of right heel, stage 3; L89.893 Pressure ulcer of other site, stage 3; E11.65 Type 2 diabetes mellitus with hyperglycemia; E11.42 Type 2 diabetes mellitus with diabetic polyneuropathy; K63.89 Other specified diseases of intestine; Z66 Do not resuscitate; Z51.5 Encounter for palliative care; E87.2 Acidosis; A04.7 Enterocolitis due to Clostridium difficile; E83.42 Hypomagnesemia; R00.0 Tachycardia, unspecified; D72.829 Elevated white blood cell count, unspecified; R41.82 Altered mental status, unspecified; R45.1 Restlessness and agitation; I95.9 Hypotension, unspecified; E78.5 Hyperlipidemia, unspecified; I10 Essential (primary) hypertension; K58.9 Irritable bowel syndrome, unspecified; E66.9 Obesity, unspecified; Z68.33 Body mass index [BMI] 33.0-33.9, adult; F03.90 Unspecified dementia, unspecified severity, without behavioral disturbance, psychotic disturbance, mood disturbance, and anxiety; F32.9 Major depressive disorder, single episode, unspecified; K21.0 Gastro-esophageal reflux disease with esophagitis; Z86.73 Personal history of transient ischemic attack (TIA), and cerebral infarction without residual deficits; Z79.4 Long term (current) use of insulin; Z89.512 Acquired absence of left leg below knee; Z87.891 Personal history of nicotine dependence; Z95.820 Peripheral vascular angioplasty status with implants and grafts; Z53.09 Procedure and treatment not carried out because of other contraindication
CPT/HCPCS: 36600; 70450; 71010; 74176; 74177; 80048; 80053; 81003; 82140; 82272; 82803; 82948; 83036; 83605; 83735; 84100; 84484; 85025; 85025 91; 85027; 85610; 85730; 86900; 86901; 86920; 87040; 87070; 87075; 87077; 87147; 87186; 87205; 87493; 87641; 93005; 94002; 94640; 94799; 95819; 99281; 99285; A6212; C9113; J0360; J0456; J0696; J1170; J1630; J1815; J1940; J2270; J3010; J3430; J3475; J7050; J7120; P9016; P9017; S0030